=== PATIENT | female | born 1975 | race Caucasian/White ===

== ENCOUNTER → 2017-02-02 | Outpatient (CLI) | payer MEDICARE ==
--- NOTE | 2017-02-02 16:27 | RAD ---
Abdominal wall ultrasound, 02/02/2017: History: Mass near umbilicus, possible hernia The area of clinical concern in the periumbilical region was carefully scanned. There is an echogenic structure compatible with bowel, which appears to be bulging into the subcutaneous fat just superior to the level of the umbilicus. The exact level of the abdominal wall fascia is not clear on these images. CT scanning is suggested for better delineation.
== END | disposition home or self-care (01) ==
LOC: US 15:13
PROVIDERS: ATTEND Family Medicine
DX: K43.9 Ventral hernia without obstruction or gangrene (principal)
CPT/HCPCS: 76705

== ENCOUNTER → 2017-03-10 | Outpatient (CLI) | payer MEDICARE ==
[~2017-03-10] MED LIST: IOHEXOL 240 MG/ML 50ML VIAL. PO ONE
--- NOTE | 2017-03-10 16:15 | RAD ---
CT of the abdomen without contrast, 03/10/2017: History: Umbilical region mass No IV contrast was administered for this study as requested. Oral contrast material was given for GI tract opacification. There is diastases of the rectus abdominis musculature with prominent anterior bulging of the intervening fascia. Abdominal fat and bowel loops extend into this region. This process extends into the pelvis and is not fully visualized on these abdominal scans. There is a tiny fat-containing umbilical hernia. The unopacified liver is unremarkable. No dense gallstones are seen. The pancreas is unremarkable. The spleen is of normal size. The unopacified kidneys show no abnormality. No retroperitoneal or mesenteric adenopathy is seen. The bowel loops are not dilated. No free fluid or free air is evident in the abdomen. IMPRESSION: 1. Diastases of the rectus abdominis musculature with prominent anterior bulging of the intervening fascia and abdominal contents as described above. 2. No acute abdominal abnormality is detected.
== END | disposition home or self-care (01) ==
LOC: CT 14:25
PROVIDERS: ATTEND Family Medicine
DX: R19.05 Periumbilic swelling, mass or lump (principal)
CPT/HCPCS: 74150